=== PATIENT | male | born 1980 | race African-American/Black ===

== ENCOUNTER 2016-11-08 17:56 | Emergency (ER) | payer SELFPAY ==
[2016-11-08] MEDS ORDERED: SODIUM CHLORIDE 0.9% 1000ML 1,000 ML IV ONE (18:50)
[2016-11-08] MEDS ORDERED: LOPERAMIDE HYDROCHLORIDE 2 MG CAP PO ONE (18:51)
[2016-11-08] MEDS ORDERED: KETOROLAC TROMETHAMINE 30 MG/ML SOL IV ONE (18:51)
[2016-11-08 19:15] LABS: BASOPHILS % (AUTO) 1 % (0-3); EOSINOPHILS % (AUTO) 3 % (0-9); HEMATOCRIT 45 % (39-53); MEAN CORPUSCULAR HGB CONC 33.5 gm/dl (32.0-36.0); MEAN CORPUSCULAR VOLUME 90 fL (80-100); MONOCYTES % (AUTO) 12.5 % (0-12); NEUTROPHILS % (AUTO) 36.7 % (37-80)
[2016-11-08] MEDS ORDERED: LOPERAMIDE HYDROCHLORIDE 2 MG CAP ONE (19:26)
[2016-11-08] MEDS ORDERED: KETOROLAC TROMETHAMINE 30 MG/ML SOL ONE (19:26)
[2016-11-08] MEDS ORDERED: ESOMEPRAZOLE SODIUM 40 MG VIAL IV ONE (19:27)
[2016-11-08 19:42] LABS: ALBUMIN 4.2 gm/dl (3.4-5.0); CALCIUM 8.8 mg/dl (8.5-10.1); POTASSIUM 3.8 mMol/L (3.5-5.1)
[2016-11-08] MEDS: ESOMEPRAZOLE SODIUM 40 MG VIAL IV SCH ×2 (19:47→19:48)
[2016-11-08 20:32] VITALS: BP 129/74; PULSE 87; RESP 20; TEMP 95.8; O2SAT 97
== END 2016-11-08 21:07 | disposition home or self-care (01) | DRG 392 ==
LOC: ED 17:56
DX: R19.7 Diarrhea, unspecified (principal)
CPT/HCPCS: 36415; 80053; 85025; 99284; J1885